=== PATIENT | female | born 1965 | race Caucasian/White ===

== ENCOUNTER → 2020-11-07 | Outpatient (CLI) | payer BC, OTHER ==
[2020-11-07 14:55] LABS: HEMOGLOBIN 12.6 gm/dl (12.3-15.3); RED BLOOD COUNT 4.2 M/UL (4.00-5.10); WHITE BLOOD COUNT 4.5 K/UL (4.5-11.0)
[2020-11-07 15:15] LABS: BUN/CREATININE RATIO 20 (0-10)
[2020-11-08 09:14] LABS: HBSAG SCREEN Negative (Negative); HEP B CORE AB, TOT Negative (Negative)
[2020-11-08 10:14] LABS: COMPLEMENT C3, SERUM 139 mg/dL (82-167); COMPLEMENT C4, SERUM 25 mg/dL (12-38); RHEUMATOID ARTHRITIS FACTOR <10.0 IU/mL (0.0-13.9)
[2020-11-08 11:14] LABS: HCV AB <0.1 (0.0-0.9)
[2020-11-08 13:15] LABS: RNP ANTIBODIES 0.5 AI (0.0-0.9); SJOGREN'S ANTI-SS-A <0.2 AI (0.0-0.9); SJOGREN'S ANTI-SS-B 0.4 AI (0.0-0.9); SMITH ANTIBODIES <0.2 AI (0.0-0.9)
[2020-11-08 23:09] LABS: CCP ANTIBODIES IGG/IGA 4 units (0-19)
[2020-11-10 05:09] LABS: QUANTIFERON MITOGEN VALUE >10.00 IU/mL (.); QUANTIFERON TB2 AG VALUE 0.01 IU/mL (.); QUANTIFERON-TB GOLD PLUS Negative (Negative)
== END ==
LOC: LAB 12:44
PROVIDERS: Internal Medicine
DX: M06.09 Rheumatoid arthritis without rheumatoid factor, multiple sites (principal); M25.50 Pain in unspecified joint; G89.29 Other chronic pain; M25.775 Osteophyte, left foot; M25.774 Osteophyte, right foot; Z87.898 Personal history of other specified conditions; Z79.899 Other long term (current) drug therapy
CPT/HCPCS: 36415; 73130; 73630; 80053; 82728; 83520; 85025; 85652; 86038; 86140; 86160; 86200; 86235; 86431; 86704; 86803; 87340

== ENCOUNTER → 2021-04-11 | Outpatient (CLI) | payer BC | LOC: NM 08:10 | DX: M89.8X9 Other specified disorders of bone, unspecified site (principal) | CPT/HCPCS: 78306; A9503 ==

== ENCOUNTER → 2021-12-27 | Outpatient (CLI) | payer BC | LOC: CT 09:45 | DX: C50.911 Malignant neoplasm of unspecified site of right female breast (principal) | CPT/HCPCS: 71270; Q9967 ==

== ENCOUNTER → 2022-01-02 | Outpatient (CLI) | payer BC | LOC: KOH-I 13:39 | DX: M50.322 Other cervical disc degeneration at C5-C6 level (principal) | CPT/HCPCS: 72141 ==